=== PATIENT | male | born 1950 | race Caucasian/White ===

== ENCOUNTER 2019-04-27 22:31 | Inpatient (IN) | payer MEDICARE, BC ==
[~2019-04-27] VITALS: Ht 182.9 cm; Wt 88.5 kg
[2019-04-27] MEDS ORDERED: DILTIAZEM HCL 25 MG IV IV ONE ×2 (22:45→23:00)
[2019-04-27] MEDS ORDERED: ASPIRIN 81 MG TAB.CHEW PO ONE (22:45)
[2019-04-27] MEDS ORDERED: DILTIAZEM HCL 25 MG IV ONE (22:46)
[2019-04-27] MEDS ORDERED: ATOR80TA PO (22:47)
[2019-04-27] MEDS ORDERED: EPLE50TA PO (22:47)
[2019-04-27] MEDS ORDERED: ASPI81TA31 PO (22:47)
[2019-04-27] MEDS ORDERED: ISOS30TA PO (22:47)
[2019-04-27] MEDS ORDERED: METO200T3 PO (22:47)
[2019-04-27] MEDS ORDERED: ASPIRIN 81 MG TAB.CHEW ONE (22:52)
[2019-04-27 22:55] LABS: BASOPHILS # (AUTO) 0.1 K/uL (0.0-8.0); EOSINOPHILS # (AUTO) 0.2 K/uL (0.0-0.7); EOSINOPHILS % (AUTO) 2.4 % (0.0-7.0); HEMATOCRIT 46.1 % (36.7-47.1); HEMOGLOBIN 15.9 g/dL (12.5-16.3); LYMPHOCYTES # (AUTO) 1.3 K/uL (20.0-40.0); LYMPHOCYTES % (AUTO) 13.7 % (20.5-51.5); MEAN CORPUSCULAR HEMOGLOBIN 30.1 uug (23.8-33.4); MEAN CORPUSCULAR HGB CONC 35 g/dL (32.5-36.3); MEAN CORPUSCULAR VOLUME 87.1 fL (73.0-96.2); MONOCYTES # (AUTO) 0.8 K/uL (2.0-10.0); MONOCYTES % (AUTO) 7.9 % (0.0-11.0); NEUTROPHILS # (AUTO) 7.2 K/uL (1.8-8.9); PLATELET COUNT (AUTO) 250 K/uL (152-348); RED BLOOD CELL COUNT(AUTO) 5.29 MIL/uL (4.06-5.63); WHITE BLOOD COUNT (AUTO) 9.6 K/uL (3.6-10.2)
[2019-04-27 23:05] LABS: CREATININE 1.8 mg/dL (0.6-1.3); POTASSIUM 3.7 mmol/L (3.5-5.1)
[2019-04-27 23:21] LABS: BILIRUBIN,DIRECT 0.2 mg/dL (0.0-0.2); BILIRUBIN,TOTAL 0.8 mg/dL (0.2-1.0); TOTAL PROTEIN, SERUM 7.9 g/dL (6.4-8.2)
[2019-04-28] VITALS (17 sets, daily range): BP systolic 120–152; BP diastolic 72–108
[2019-04-28] MEDS ORDERED: DILTIAZEM HCL 25 MG IV IV ONE
[2019-04-28] MEDS ORDERED: HYDROCODONE/APAP 5-325MG TABLET PO PRN (01:00)
[2019-04-28] MEDS ORDERED: MAGNESIUM HYDROXIDE 30 ML LIQUID UDC PO PRN (01:00)
[2019-04-28] MEDS ORDERED: Z GUARD REMEDY PASTE 57 GM TUBE TOP PRN (01:00)
[2019-04-28] MEDS ORDERED: ACETAMINOPHEN 325 MG TABLET PO PRN (01:00)
--- NOTE | 2019-04-28 01:02 | NUR ---
PT OK TO ADMIT TO AMANDA RM 305 UNDER JESSICA DX CHEST PAIN
--- NOTE | 2019-04-28 01:55 | NUR ---
HAND OFF AND SBAR GIVEN TO ENOCH RIGGINS
--- NOTE | 2019-04-28 02:00 | NUR ---
PT TO ADMIT TO AMANDA RM 305 UNDER JESSICA DX: ATRIAL FIBRILLATION
--- NOTE | 2019-04-28 02:00 | NUR ---
Pola leonard in [facility] - 04/28/19 at 0325 by RON TRANSPORTED TO [facility] RM [address] PT RA [phone] TO Subhash RODNEY ABLE TO WALK AND TRANSFER TO BED
--- NOTE | 2019-04-28 02:50 | NUR ---
TRANSPORTED TO [facility] RM 305 VIA [address] PT RA [phone] TO L AC ABLE TO WALK AND TRANSFER TO BED
--- NOTE | 2019-04-28 03:00 | NUR ---
Patient arrived via gurney from ER, transported by ER nurse. AOx4. Verbally responsive and able to answer all questions coherently. No apparent signs of distress. Denies chest pain or discomfort. Preferred to stand up during assessment, no noted SOB. Telemetry monitoring started. NO skin issues noted. All belongings noted and accounted for. Teaching done r/t disease process and safety/fall precautions. Pt is ambulatory and continent. No issues verbalized. Admission process initiated and all admission orders noted and will carryout.
[2019-04-28] MEDS ORDERED: METOPROLOL SUCCINATE XL 50 MG TAB.SR.24H PO ONE (03:15)
--- NOTE | 2019-04-28 03:17 | NUR ---
Pt initial BP during initial assessment: 147/100. HR: 108-122 (Afib). Cassie Manzano CLINICAL PHARMACOLOGIST notified, received new orders to give Toprol 50 mg x 1 now. Noted and carried out. Pharmacy contacted to verify medication.
[2019-04-28] MEDS: ATORVASTATIN 40 MG TABLET PO SCH ×2 (03:24→21:06)
--- NOTE | 2019-04-28 05:33 | NUR ---
Bp rechecked: 139/98, HR: Goes as low as 101, but fluctuates to 124, Afib. Patient denies any pain or discomfort. Not short of breath. aCssie Manzano MINE CAR MECHANIC notified.
--- NOTE | 2019-04-28 05:45 | NUR ---
No new orders per Cassie Manzano NP. Patient remains sleeping comfortably at this time, is at bedside. No observed signs of pain/discomfort. Will just monitor for now and notify the Md for any changes.
[2019-04-28 06:33] LABS: BASOPHILS # (AUTO) 0.1 K/uL (0.0-8.0); BASOPHILS % (AUTO) 0.8 % (0.0-2.0); EOSINOPHILS # (AUTO) 0.3 K/uL (0.0-0.7); EOSINOPHILS % (AUTO) 3.5 % (0.0-7.0); HEMATOCRIT 41.3 % (36.7-47.1); HEMOGLOBIN 14.2 g/dL (12.5-16.3); LYMPHOCYTES # (AUTO) 1.6 K/uL (20.0-40.0); LYMPHOCYTES % (AUTO) 21.5 % (20.5-51.5); MEAN CORPUSCULAR HEMOGLOBIN 29.9 uug (23.8-33.4); MEAN CORPUSCULAR HGB CONC 34 g/dL (32.5-36.3); MEAN CORPUSCULAR VOLUME 86.9 fL (73.0-96.2); MONOCYTES # (AUTO) 0.7 K/uL (2.0-10.0); NEUTROPHILS # (AUTO) 4.9 K/uL (1.8-8.9); NEUTROPHILS % (AUTO) 65.2 % (38.5-71.5); PLATELET COUNT (AUTO) 209 K/uL (152-348); RED BLOOD CELL COUNT(AUTO) 4.75 MIL/uL (4.06-5.63); WHITE BLOOD COUNT (AUTO) 7.6 K/uL (3.6-10.2)
[2019-04-28 06:52] LABS: CREATININE 1.6 mg/dL (0.6-1.3); MAGNESIUM 2.1 mg/dL (1.8-2.4); PHOSPHOROUS 3.9 mg/dL (2.5-4.9); POTASSIUM 3.5 mmol/L (3.5-5.1)
--- NOTE | 2019-04-28 07:30 | NUR ---
Awake, alert, oriented x 4. Denies chest pain, feels the palpitation. Tele Afib 115. No shortness of breath
[2019-04-28] MEDS ORDERED: DULA1.5P SQ (07:35)
[2019-04-28] MEDS: ASPIRIN 81 MG TAB.CHEW PO SCH (08:54)
[2019-04-28] MEDS: ISOSORBIDE MONONITRATE 30 MG TAB.SR.24H PO SCH (08:55)
[2019-04-28] MEDS ORDERED: METOPROLOL SUCCINATE XL 50 MG TAB.SR.24H PO SCH (09:00)
[2019-04-28] MEDS ORDERED: EPLERENONE 50 MG PO SCH (09:00)
--- NOTE | 2019-04-28 10:00 | NUR ---
Patient called, saying not feeling well and feeling short of breath, and asking for lasix dose. Placed on O2 at 2L/NC. Hospitlaist informed. With sweating and nausea and feeling of acid reflux, saying "it was from the pancake I ate" Vital signs taken BP 152/102. Zofran given. Called rapid response.
[2019-04-28] MEDS: ONDANSETRON 4 MG/2 ML VIAL IV PRN (10:01)
[2019-04-28] MEDS ORDERED: INSULIN REGULAR, HUMAN 300 UNIT/3 ML VIAL SQ PRN (10:30)
[2019-04-28] MEDS ORDERED: METOPROLOL TARTRATE 5 MG/5 ML VIAL IVP PRN (10:30)
[2019-04-28] MEDS ORDERED: FUROSEMIDE 40 MG/4 ML VIAL IV ONE (10:30)
[2019-04-28] MEDS ORDERED: DEXTROSE 50% 50 ML DISP.SYRIN IV PRN (10:30)
--- NOTE | 2019-04-28 11:30 | NUR ---
Lasix and Lopressor IV given as ordered. Tele Afib [phone]
--- NOTE | 2019-04-28 12:12 | NUR ---
Noted 2 episode of asystole, 3.3 and 3.9 seconds. Rapid Response [address]. Dr. Todd seen and examined patient. EKG, CXR Echocardiogram done
[2019-04-28] MEDS: BLOOD SUGAR DIAGNOSTIC 1 EACH STRIP VI SCH ×3 (13:11→21:23)
--- NOTE | 2019-04-28 13:30 | NUR ---
Patient transferred to CCU, report given to Zari RIGGINS
--- NOTE | 2019-04-28 13:46 | NUR ---
report received from VAISHNAVI Tomas.Pt transferred to bed ,connected to monitor.Pt remains awake,alert,oriented.Denies chest pain.Noted with slightly SOB on exertion.AFIB on monitor with rate 122 to 129.Seen,examined by . at bedside to discuss pacemaker placement.
[2019-04-28] MEDS: METOPROLOL TARTRATE 5 MG/5 ML VIAL IVP PRN ×3 (16:20→22:54)
--- NOTE | 2019-04-28 18:09 | NUR ---
Pt remains awake,alert.Denies pain,chest pain.Remains in AFIB with rate uncontrolled.Medicated with Lopressor IV 5 mg PRN. at bedside,aware of heart rate.
--- NOTE | 2019-04-28 18:40 | NUR ---
Spoke with caseworker protective services regarding pt transfer.Pt remains NPO.
--- NOTE | 2019-04-28 19:20 | NUR ---
everett ,ed case manager called regarding patient being acceptd for transfer to [facility] , and will give us a call when bed available
--- NOTE | 2019-04-28 20:00 | NUR ---
dr baez was called to give an update of patient's transfer order to [facility] , and patient's request for diet change from npo , order received , keep npo except meds
[2019-04-28] MEDS ORDERED: Medication Not On Formulary EA (Atorvastatin Calcium (Lipitor) 80 MG) PO SCH (21:00)
[2019-04-28] MEDS: EPLERENONE 50 MG PO SCH (21:06)
--- NOTE | 2019-04-28 21:30 | NUR ---
nose bleeding , small amount of blood , patient is place on fowlers's position and advice to be on bedrest and being monitored for increase in bleeding
[2019-04-28] MEDS ORDERED: METOPROLOL TARTRATE 5 MG/5 ML VIAL IVP ONE (22:38)
--- NOTE | 2019-04-28 23:09 | NUR ---
* Achieves hemodynamic stability * Maintains vital signs WNL * Exhibits no adventitious breath sounds being monitored 5 ivp and metoprolol given for specific parameters Addendum: 04/28/19 at 2313 by WANDER CASTANEDA RN Amended: Links added.
--- NOTE | 2019-04-28 23:11 | NUR ---
* Achieves hemodynamic stability * Maintains vital signs WNL * Exhibits no adventitious breath sound education given regarding atrial fibrillation and hypertension reinforcement given along with the family member on the bedside Addendum: 04/28/19 at 2313 by WANDER CASTANEDA RN Amended: Links added.
--- NOTE | 2019-04-28 23:13 | NUR ---
* Exhibits adequate oxygenation and ventilation * Exhibits adequate cardiac output * Regains stable cardiac rythm * Maintains optimal activity level Addendum: 04/28/19 at 2313 by WANDER CASTANEDA RN Amended: Links added.
--- NOTE | 2019-04-28 23:17 | NUR ---
no further nose bleeding noted
[2019-04-29] VITALS (15 sets, daily range): BP systolic 139–165; BP diastolic 66–112
--- NOTE | 2019-04-29 | NUR ---
refused to be changed position or cleaned at this time
--- NOTE | 2019-04-29 00:14 | NUR ---
resting comfortably , no signs of distress , at bedside
[2019-04-29] MEDS: METOPROLOL TARTRATE 5 MG/5 ML VIAL IVP PRN (02:06)
--- NOTE | 2019-04-29 02:11 | NUR ---
awake , oriented x 3 , denies pain , headache, sob
--- NOTE | 2019-04-29 02:32 | NUR ---
patient prefers to be in high fowlers position and refused , to be changed or cleaned or reposition at this time
[2019-04-29 05:30] LABS: CREATININE 1.9 mg/dL (0.6-1.3); MAGNESIUM 1.9 mg/dL (1.8-2.4); PHOSPHOROUS 3.6 mg/dL (2.5-4.9); POTASSIUM 3.5 mmol/L (3.5-5.1)
--- NOTE | 2019-04-29 05:30 | NUR ---
dr kruger was called and notified of parien't's heart rate and blood pressure sustaining greater than 150 and also diastolic greater than 100 , received orders
[2019-04-29 05:37] LABS: BASOPHILS # (AUTO) 0.1 K/uL (0.0-8.0); BASOPHILS % (AUTO) 0.8 % (0.0-2.0); EOSINOPHILS # (AUTO) 0.2 K/uL (0.0-0.7); EOSINOPHILS % (AUTO) 2.6 % (0.0-7.0); HEMATOCRIT 43.3 % (36.7-47.1); HEMOGLOBIN 14.6 g/dL (12.5-16.3); LYMPHOCYTES % (AUTO) 22.5 % (20.5-51.5); MEAN CORPUSCULAR HEMOGLOBIN 29.5 uug (23.8-33.4); MEAN CORPUSCULAR HGB CONC 34 g/dL (32.5-36.3); MEAN CORPUSCULAR VOLUME 87.4 fL (73.0-96.2); MONOCYTES # (AUTO) 0.8 K/uL (2.0-10.0); NEUTROPHILS # (AUTO) 5.7 K/uL (1.8-8.9); NEUTROPHILS % (AUTO) 65.1 % (38.5-71.5); PLATELET COUNT (AUTO) 211 K/uL (152-348); RED BLOOD CELL COUNT(AUTO) 4.95 MIL/uL (4.06-5.63); WHITE BLOOD COUNT (AUTO) 8.8 K/uL (3.6-10.2)
[2019-04-29] MEDS ORDERED: hydrALAZINE HCL 20 MG/1 ML VIAL IV PRN (05:45)
--- NOTE | 2019-04-29 06:03 | NUR ---
sponge bath offered and refused and at the bedside
[2019-04-29] MEDS: BLOOD SUGAR DIAGNOSTIC 1 EACH STRIP VI SCH ×2 (06:34→11:30)
--- NOTE | 2019-04-29 07:21 | NUR ---
[facility] was called [phone] , the custodial operations manager said to follow up at 10 : 30 am to follow up for the bed placement
[2019-04-29] MEDS: ONDANSETRON 4 MG/2 ML VIAL IV PRN (07:43)
--- NOTE | 2019-04-29 07:54 | NUR ---
dr baez was called to to notify patient not transferred to [facility] yet , still npo , diabetic and latest blood sugar is 89 , waiting for call back
--- NOTE | 2019-04-29 08:13 | NUR ---
complained of nausea , medication offered and accepted
[2019-04-29] MEDS ORDERED: METOPROLOL SUCCINATE XL 50 MG TAB.SR.24H PO SCH (09:00)
[2019-04-29] MEDS ORDERED: METOPROLOL SUCCINATE 200 MG PO SCH (09:00)
--- NOTE | 2019-04-29 09:00 | NUR ---
Received patient in stable condition. Slightly elevated BP, PRN medication on standby if SBP > 170. NSR HR 80s. Room air. Patient is A/Ox4, no complaints of pain at this time, states he is comfortable. Call light within reach.
[2019-04-29] MEDS ORDERED: POTASSIUM CHLORIDE 20 MEQ POWDER PACKET GT ONE (09:15)
--- NOTE | 2019-04-29 09:30 | NUR ---
Dr. Todd at bedside for assessment, updates given. Orders received. Per MD, cleared by cardiology for discharge. Pending hospitalist assessment.
[2019-04-29] MEDS: EPLERENONE 50 MG PO SCH (09:37)
[2019-04-29] MEDS: ISOSORBIDE MONONITRATE 30 MG TAB.SR.24H PO SCH (09:39)
[2019-04-29] MEDS: ASPIRIN 81 MG TAB.CHEW PO SCH (09:39)
[2019-04-29] MEDS ORDERED: APIX5TAB4 PO (12:26)
--- NOTE | 2019-04-29 12:30 | NUR ---
Dr. All Colon here for assessment. Updates given. Per , TOMAS to discharge, e-Prescription transmitted to preferred pharmacy.
--- NOTE | 2019-04-29 13:51 | NUR ---
Patient was discharged per MD orders. Patient in stable condition. Education provided regarding diagnosis and new prescription. Instructed to stop metoprolol as ordered by physician. Per picker/puller, also instructed not to drive. Patient and verbalized understanding. e-Prescription sent to preferred pharmacy. Patient has scheduled appointment with Dr. Silva on Wednesday Patient left in stable condition. IV removed. Left facility at 1350 accompanied by .
== END 2019-04-29 13:55 | disposition home or self-care (01) | DRG 280 ==
LOC: ER 22:31 → DOU3 04-28 02:15 → TELE-TD3 04-28 03:23 → CCU 04-28 13:30
PROVIDERS: ADMIT Nurse Practitioner Acute Care; ATTEND Nurse Practitioner Acute Care
DX: I49.5 Sick sinus syndrome (principal); I21.A1 Myocardial infarction type 2; I50.43 Acute on chronic combined systolic (congestive) and diastolic (congestive) heart failure; I13.0 Hypertensive heart and chronic kidney disease with heart failure and stage 1 through stage 4 chronic kidney disease, or unspecified chronic kidney disease; N17.9 Acute kidney failure, unspecified; I48.0 Paroxysmal atrial fibrillation; I25.10 Atherosclerotic heart disease of native coronary artery without angina pectoris; Z95.5 Presence of coronary angioplasty implant and graft; N40.0 Benign prostatic hyperplasia without lower urinary tract symptoms; N18.9 Chronic kidney disease, unspecified; E11.22 Type 2 diabetes mellitus with diabetic chronic kidney disease; E66.9 Obesity, unspecified; E78.5 Hyperlipidemia, unspecified; K21.9 Gastro-esophageal reflux disease without esophagitis; I25.82 Chronic total occlusion of coronary artery; I25.5 Ischemic cardiomyopathy; E26.9 Hyperaldosteronism, unspecified; Z79.899 Other long term (current) drug therapy; Z79.82 Long term (current) use of aspirin; E05.90 Thyrotoxicosis, unspecified without thyrotoxic crisis or storm; E03.9 Hypothyroidism, unspecified
CPT/HCPCS: 36415; 70030-TC; 71045; 83735; 84100; 84443; 85025; 85730; 93005; 93307; A4663; G0378; J0360; J1815; J1940; J2405; J3490